=== PATIENT | female | born 1990 | race Two or more races ===

== ENCOUNTER 2021-09-23 13:12 | Emergency (ER) | payer SELFPAY ==
[2021-09-23] MEDS ORDERED: Sodium Chloride 0.9% 2.5 ML Syringe FLUSH PRN (13:16)
[2021-09-23] MEDS ORDERED: Sodium Chloride 0.9% 10 ML Syringe FLUSH PRN (13:16)
[2021-09-23] MEDS ORDERED: Sodium Chloride 0.9% 1,000 ML IV ONE (14:24)
[2021-09-23] MEDS ORDERED: Alum Hydro/Mag Hydro/Simeth XS 15 ML, Metoclopramide 5 MG, Lidocaine 2% 5 ML PO ONE ×3 (14:24)
[2021-09-23] MEDS ORDERED: Famotidine 20 MG/2 ML SDV IVPUSH ONE (14:24)
[2021-09-23 14:29] LABS: CARBON DIOXIDE,CO2 23.8 mmol/L (21.0-32.0); POTASSIUM,K 4.4 mmol/L (3.5-5.1)
== END 2021-09-23 16:45 | disposition home or self-care (01) ==
LOC: MW.ED 13:12
DX: R10.13 Epigastric pain (principal); Z79.899 Other long term (current) drug therapy
CPT/HCPCS: 36415; 80053; 81003; 81025; 83690; 85025; 93005; 96361; 96374; 99284; A9270; J3490; J7030; 99283